=== PATIENT | female | born 1960 | race Hispanic/Latino ===

== ENCOUNTER → 2018-04-01 | Outpatient (CLI) | payer BC, OTHER | END | disposition home or self-care (01) | LOC: SHCH 14:50 | PROVIDERS: ATTEND Internal Medicine Cardiovascular Disease | DX: I51.7 Cardiomegaly (principal) | CPT/HCPCS: 93306 ==

== ENCOUNTER → 2018-04-07 | Outpatient (CLI) | payer BC, OTHER | END | disposition home or self-care (01) | LOC: SHCH 15:03 | PROVIDERS: ATTEND Internal Medicine Cardiovascular Disease | DX: I87.2 Venous insufficiency (chronic) (peripheral) (principal) | CPT/HCPCS: 93970 ==

== ENCOUNTER → 2018-07-27 | Outpatient (CLI) | payer BC | END | disposition home or self-care (01) | LOC: SHCH 10:04 | PROVIDERS: ATTEND Internal Medicine Cardiovascular Disease | DX: Z09 Encounter for follow-up examination after completed treatment for conditions other than malignant neoplasm (principal) | CPT/HCPCS: 93971 ==

== ENCOUNTER → 2024-06-04 | Outpatient (CLI) | payer BC, OTHER ==
--- NOTE | 2024-06-07 08:54 | HMCSR ---
APPROVED REPORT EXAM: Two-dimensional and M-mode echocardiogram with Doppler and color Doppler. INDICATION ICD: R01.1, R53.83, R60.9 2D Dimensions RVDd3.6 cmLVEF(%)63.3 (>50%)LVED Vol(simp.)85.9 mL IVSd0.7 (0.7-1.1cm)FS(%)34 %LVES Vol(simp.)33.3 mL LVDd4.4 (3.8-5.6cm)LA (2D)4.4 (1.6-4.0cm)LVEF(%, simp.)61 % PWd1.1 (0.7-1.1cm)Ao Root(2D)2.4 (2.0-3.7cm)LA ESV INDEX (2CH)22.10 mL/m2 IVSs1.0 cmLVOT diam1.8 (1.8-2.4cm) LVDs2.9 (2.5-4.0cm) PWs1.3 cm M-Mode Dimensions EPSS0.4 cm LA (MM)4.1 (1.6-4.0cm) Ao Root(MM)2.8 (2.0-3.7cm) Aortic Valve AoV VTI0.3 mAo Mean GR7.0 mmHgLVOT VTI0.20 m NICOLAS (VMAX)1.5 cm2AVA (VTI) 1.5 cm2 Mitral Valve MV E Vmax69.8 cm/sDECEL Opti118 ms MV A Vmax87.3 cm/sP 1/2 T54 ms E/A ratio0.8MVA (PHT)4.1 cm2 TDI E/E' Mzccuz04.9E/E' Btptnop53.3 Medial E' Peak V4.70 cm/sLateral E' Peak V6.20 cm/s Pulmonary Valve PV Vmax1.3 m/s PV Peak GR6.4 mmHg Tricuspid Valve TR Vmax1.6 m/s TR Peak GR10.1 mmHg Left Ventricle The left ventricle is normal size. No regional wall motion abnormalities noted. There is normal left ventricular wall thickness. The LVEF is > 55%. Stage I diastolic dysfunction. Right Ventricle The right ventricle is normal size. The right ventricular systolic function is normal. Atria The left atrium size is normal. The right atrium size is normal. Aortic Valve The aortic valve is normal in structure. No aortic regurgitation is present. There is no aortic valvu lar stenosis. Mitral Valve The mitral valve is mildly thickened. Mitral valve leaflets open well. There is no mitral valve regur gitation noted. There is no mitral valve stenosis. Tricuspid Valve The tricuspid valve is normal in structure. There is trace of tricuspid valve regurgitation noted. Pulmonic Valve The pulmonary valve is normal in structure. There is no pulmonic valvular regurgitation. Great Vessels The aortic root is normal in size. The IVC is normal in size and collapses >50% with inspiration. Pericardium There is no pericardial effusion. Other Information Quality : Adequate Conclusion The LVEF is > 55%. Stage I diastolic dysfunction. No regional wall motion abnormalities noted. The aortic root is normal in size. There is no pericardial effusion.
== END | disposition home or self-care (01) ==
LOC: RAH 13:54
PROVIDERS: ATTEND Internal Medicine Cardiovascular Disease
DX: I05.9 Rheumatic mitral valve disease, unspecified (principal); R01.1 Cardiac murmur, unspecified; R53.83 Other fatigue; R60.9 Edema, unspecified
CPT/HCPCS: 93306